=== PATIENT | female | born 1955 | race African-American/Black ===

== ENCOUNTER 2022-01-29 05:58 | Outpatient (REF) | payer MEDICARE, SELFPAY ==
--- NOTE | ~2022-01-29 | XR_ITS ---
EXAMINATION: XR knee RT 3V CLINICAL INFORMATION: Pain COMPARISON: None TECHNIQUE: 3 views of the knee XR/XR knee RT 3V FINDINGS/IMPRESSION: No acute fracture or dislocation. Joint spaces are maintained. No joint effusion. Soft tissues are unremarkable.
--- NOTE | ~2022-01-29 | XR_ITS ---
EXAMINATION: XR hip RT min 2V CLINICAL INFORMATION: Reason for Exam INJURY RIGHT HIP COMPARISON: None TECHNIQUE: Two views of the hip. XR/XR hip RT min 2V FINDINGS/IMPRESSION: No definite acute fracture appreciated however there is limited change in positioning of the hip on the AP and frog-leg lateral views, and therefore consider a CT hip to ensure no radiographically occult fracture. Advanced degenerative changes of the hip with complete loss of superolateral joint space, subchondral sclerosis and cystic change with bony remodeling of the femoral head and acetabulum. Soft tissues are unremarkable.
== END 2022-01-29 05:59 | disposition home or self-care (01) ==
LOC: HO.XRAY 05:58
PROVIDERS: PCP Internal Medicine; Visit Provider Internal Medicine
DX: S79.911D Unspecified injury of right hip, subsequent encounter (principal); M25.561 Pain in right knee
CPT/HCPCS: 73502; 73562

== ENCOUNTER 2022-07-01 08:13 | Outpatient (REF) | payer MEDICARE, SELFPAY ==
--- NOTE | ~2022-07-01 | MM_ITS ---
EXAMINATION: BONE DENSITOMETRY CLINICAL INDICATION: Vitamin D deficiency. COMPARISON: None (current study represents initial baseline exam). TECHNIQUE: Using a [employer] DXA System (software version: 13.1) manufactured by [employer], dual-energy x-ray absorptiometry was performed of the lumbar spine and left hip. The images are of good technical quality. Summary results are attached. FINDINGS: AP SPINE L1-L4: BMD 1.183 g/cm2, Z-score 0.6, T-score 0.0, normal. LEFT FEMUR, NECK: BMD 1.058 g/cm2, Z-score 0.5, T-score 0.1, normal. LEFT FEMUR, TOTAL: BMD 1.138 g/cm2, Z-score 1.1, T-score 1.0, normal. IDENTIFIED RISK FACTORS: Menopause. HISTORY OF FRACTURE: None listed. MEDICATIONS: Calcium supplements or multivitamin, vitamin D. MM/XR DEXA axial skeleton IMPRESSION: 1. DIAGNOSIS: Normal bone density based on the lowest T-score value of 0.0 in the lumbar spine applying World Health Organization criteria. 2. 10-YEAR FRACTURE RISK PREDICTION, FRAX: According to the guidelines, FRAX calculation should only be performed on patients in the osteopenia bone density category. Therefore, FRAX was not performed on this patient. 3. Treatment Recommendations: NOF guidelines recommend consideration for treatment in postmenopausal women and men age 50 and older presenting with the following: -A hip or vertebral (clinical or morphometric) fracture. -T-score less than or equal to -2.5 at the femoral neck or spine after appropriate evaluation to exclude secondary causes. -Low bone mass at the hip or spine and a 10-year fracture probability by FRAX of greater than or equal to 3% for hip fracture or greater than or equal to 20% for major osteoporotic fracture based on the [place] adapted WHO algorithm. 4. Other Recommendations: All treatment decisions require clinical judgment and consideration of individual patient factors, including patient preferences, comorbidities, previous drug use, risk factors not captured in the FRAX model (e.g. frailty, falls, vitamin D deficiency, increased bone turnover, interval significant decline in bone density) and possible under or overestimation of fracture risk by FRAX. FUTURE SCAN RECOMMENDATION: People with diagnosed cases of osteoporosis or at high risk for fracture should have regular bone mineral density tests. For patients eligible for Medicare, routine testing is allowed once every 2 years. The testing frequency can be increased to one year for patients who have rapidly progressing disease, those who are receiving or discontinuing medical therapy to restore bone mass, or have additional risk factors.
== END 2022-07-01 08:14 | disposition home or self-care (01) ==
LOC: HO.MAMMO 08:13
PROVIDERS: Visit Provider Internal Medicine
DX: Z13.820 Encounter for screening for osteoporosis (principal); E55.9 Vitamin D deficiency, unspecified; Z78.0 Asymptomatic menopausal state
CPT/HCPCS: 77080

== ENCOUNTER 2023-04-28 10:41 | Outpatient (REF) | payer MEDICARE, SELFPAY | END 2023-04-28 10:42 | disposition home or self-care (01) | LOC: HO.SH 10:41 | PROVIDERS: Visit Provider Internal Medicine | DX: Z01.118 Encounter for examination of ears and hearing with other abnormal findings (principal); H61.21 Impacted cerumen, right ear | CPT/HCPCS: 92557; 92567 ==

== ENCOUNTER 2023-12-22 07:14 | Outpatient (REF) | payer MEDICARE, SELFPAY ==
--- NOTE | ~2023-12-22 | XR_ITS ---
EXAMINATION: XR LUMBOSACRAL SPINE WITH OBLIQUES CLINICAL INFORMATION: Chronic pain. COMPARISON: Radiographs dated 07/05/2019. TECHNIQUE: AP, both oblique, and lateral views of the lumbar spine. Lateral view of the lumbosacral junction. FINDINGS: There is bony demineralization. There is a mild to moderate thoracolumbar rotatory dextroscoliosis. At L4-L5, there is mild disc space narrowing and a 4 mm anterolisthesis. There is moderately severe disc space narrowing at L5-S1. The remaining disc spaces are relatively well-maintained. No acute fracture or spondylolisthesis is seen. No spondylolysis defect is seen on the oblique views. The posterior elements are intact. There is facet arthropathy extending from L3-L4 through L5-S1. The paravertebral soft tissues are unremarkable. XR/XR lumbar spine 4V min IMPRESSION: 1. There is moderate degenerative disc disease at L4-L5, and moderately severe degenerative disc disease is seen at L5-S1. 2. There is facet arthropathy extending from L3-L4 through L5-S1. 3. There is a moderate thoracolumbar rotatory dextroscoliosis.
--- NOTE | ~2023-12-22 | XR_ITS ---
EXAMINATION: XR HIP, RIGHT CLINICAL INFORMATION: Chronic pain. COMPARISON: Prior radiographs, most recently 01/29/2022. TECHNIQUE: AP and frog-leg lateral views of the right hip are submitted. FINDINGS: Bony alignment and mineralization are normal. There is marked narrowing of the right acetabular joint space. There is subchondral sclerosis, subchondral cyst formation and peripheral osteophyte formation of the articular surfaces of the right hip. The right femoral head remains smooth. There is no fracture or dislocation. The included portion of the right sacroiliac joint is intact. The pubic symphysis is intact. No foreign body is seen. XR/XR hip RT min 2V IMPRESSION: There is marked osteoarthritic change of the right hip. No fracture or dislocation is seen.
== END 2023-12-22 07:15 | disposition home or self-care (01) ==
LOC: HO.XRAY 07:14
PROVIDERS: PCP Physician Assistant Surgical; Visit Provider Physician Assistant Surgical
DX: M25.551 Pain in right hip (principal); G89.29 Other chronic pain
CPT/HCPCS: 72110; 73502